=== PATIENT | male | born 1960 | race Caucasian/White ===

== ENCOUNTER 2023-08-12 08:47 | Outpatient (CLI) | payer OTHER, SELFPAY | END 2023-08-12 08:48 | disposition home or self-care (01) | LOC: AMB 08-13 16:08 | PROVIDERS: PCP Family Medicine; Visit Provider Emergency Medicine Emergency Medical Services | DX: R07.89 Other chest pain (principal) | CPT/HCPCS: A0425; A0427 ==

== ENCOUNTER 2023-08-12 09:25 | Emergency (ER) | payer OTHER, SELFPAY ==
[2023-08-12] VITALS (13 sets, daily range): BP systolic 104–150; BP diastolic 55–89; PULSE 74–87; RESP 18; TEMP 36.6; O2SAT 92–96; BMI 42.0
--- NOTE | 2023-08-12 10:14 | CT_ITS ---
Patient: GIL JOHN Facility:?[facility] Patient ID:?[id number] Site Patient ID:?[id number]. Site :?[id number] Study:?CT-Abdomen/Pelvis W/ISOVUE 370 132CC-08/12/2023 11:24:23 AM Ordering Physician:MELLO Final Report: Indication: LLQ & Epig pain Technique: CT abdomen/pelvis with IV contrast, 132 mL Isovue 370 Comparison: CT chest abdomen pelvis on December 15, 2015 Findings: The visualized lower thorax is unremarkable. Diffuse hepatic steatosis. Simple appearing cyst in the left hepatic lobe measuring approximately 1.2 centimeters. No suspicious focal hepatic lesions. The gallbladder, spleen, pancreas, and bilateral adrenal glands are unremarkable. The kidneys are fused in a normal fashion. No suspicious enhancing renal masses or lesions. Simple appearing renal cysts bilaterally. Unchanged perinephric stranding. No renal calculi or hydroureteronephrosis. The bladder is unremarkable. The seminal vesicles and prostate are unremarkable. No evidence of bowel obstruction or inflammation. Diverticulosis of the descending and proximal sigmoid colon without definitive CT evidence of acute diverticulitis. No free fluid or free air. No abdominopelvic lymphadenopathy. No abdominal aortic aneurysm. Mild calcified noncalcified atherosclerosis of the aortoiliac system. The soft tissues are unremarkable. The osseous structures are unremarkable for the patient`s age. Impression: 1. No definitive CT evidence of an acute process involving the abdomen or pelvis. 2. Diverticulosis of the descending and proximal sigmoid colon without definitive CT evidence of acute diverticulitis. Please note that all CT scans at this facility use dose modulation, iterative reconstruction, and/or weight-based dosing when appropriate to reduce radiation dose to as low as reasonably achievable. Dictated by Franko Ivory MD @ 08/12/2023 12:18:59 PM Signed by:?Franko Ivory MD @08/12/2023 12:18:59 PM (Electronic Signature)
--- NOTE | 2023-08-12 10:19 | ED_ITS ---
HPI - Chest Pain General Chief Complaint: Chest Pain Stated Complaint: Chest pain Time Seen by Provider: 08/12/23 10:03 History of Present Illness HPI narrative: This 63-year-old male comes in reporting abdominal pain for the past 2 or 3 days. This pain was located in his left lower quadrant and he states that is rather constant. This morning he awoke with some upper epigastric pain and some tingling in his shoulders. He states that he really did not have chest pain. He did not have any nausea, vomiting, lightheadedness, shortness of breath, or diaphoresis. He does not report any exercise intolerance. He does not report any blood in the stool or diarrhea. He has not had any fevers. Related Data Home Medications Medication Instructions Recorded Confirmed atorvastatin 20 mg tablet mg PO 08/12/23 carvedilol 12.5 mg tablet 25 mg PO BID 08/12/23 08/12/23 hydroxyzine pamoate 25 mg capsule mg PO 08/12/23 lisinopril 10 1 tab PO DAILY 08/12/23 08/12/23 mg-hydrochlorothiazide 12.5 mg tablet lorazepam 0.5 mg tablet mg PO 08/12/23 sertraline 25 mg tablet 25 mg PO DAILY 08/12/23 08/12/23 Previous Rx's Medication Instructions Recorded amoxicillin 875 mg-potassium 1 tab PO BID #14 tabs 08/12/23 clavulanate 125 mg tablet Allergies Allergy/AdvReac Type Severity Reaction Status Date / Time No Known Drug Allergies Allergy Verified 08/12/23 09:33 Review of Systems Status of ROS Reports: 10 or more systems reviewed and unremarkable except as noted in History and below Narrative Constitutional: No fevers, no weight gain or loss. Eyes: No discharge. No vision changes. HENT: No congestion, no sore throat, no ear pain. Cardiovascular: No chest pain, no palpitations. Respiratory: No shortness of breath, no wheezes, no cough. Gastrointestinal: No vomiting, no diarrhea. Abdominal pain as described above. Genitourinary: No dysuria, no hematuria. Musculoskeletal: Normal range of motion. Skin: No rashes, no pruritis. Neurological: No dizziness, weakness, sensory change, speech change. Endo/Heme/Allergies: No bruising or bleeding. No polydipsia. Pysch: no suicidality, no anxiety, no insomnia. All other systems reviewed and are negative. [facility] Social History Smoking Status: Never smoker How often do you have a drink containing alcohol: 2-4 times a month AUDIT-C Alcohol total score: 2 Non-prescribed substance use: denies use Exam Narrative Exam Narrative: Constitutional: Well-developed, well-nourished, no acute distress. HEENT: Normocephalic, atraumatic. Neck: Normal range of motion. Nontender. Supple. Heart: Regular. No murmurs. Normal rate. Intact distal pulses. Lungs: Clear to auscultation. No chest discomfort. No wheezes, rhonchi, or rales. Abdomen: Normal bowel sounds. Tenderness in the left lower quadrant. No rebound tenderness. Genitalia: Deferred. Back: No midline tenderness. Normal range of motion. Extremities: Normal range of motion. No injury. Skin: Intact. No rash. Warm. No erythema or pallor. Neurologic: No altered sensation. No weakness. Alert and oriented. Psychiatric: No suicidality. No anxiety or depression. No insomnia. Nursing notes and vitals signs are reviewed. Const Vital Signs, click to edit/add: Vital Signs - 24 hr 08/12/23 09:28 08/12/23 10:15 08/12/23 10:30 Temperature 97.9 F Pulse Rate 80 74 Pulse Rate [Pulse Oximeter] 75 Respiratory Rate 18 Blood Pressure Blood Pressure [Right Upper Arm] 150/87 H Pulse Oximetry 95 96 94 Oxygen Delivery Method Room Air 08/12/23 10:40 08/12/23 10:41 08/12/23 11:00 Temperature Pulse Rate 75 74 74 Pulse Rate [Pulse Oximeter] Respiratory Rate Blood Pressure 125/89 Blood Pressure [Right Upper Arm] Pulse Oximetry 93 95 93 Oxygen Delivery Method 08/12/23 11:01 08/12/23 11:35 08/12/23 12:00 Temperature Pulse Rate 76 79 78 Pulse Rate [Pulse Oximeter] Respiratory Rate Blood Pressure 117/79 Blood Pressure [Right Upper Arm] Pulse Oximetry 93 94 95 Oxygen Delivery Method 08/12/23 12:02 08/12/23 12:30 08/12/23 12:31 Temperature Pulse Rate 82 80 80 Pulse Rate [Pulse Oximeter] Respiratory Rate Blood Pressure 104/55 L 113/59 L Blood Pressure [Right Upper Arm] Pulse Oximetry 93 95 92 Oxygen Delivery Method Course Vital Signs Vital signs: Initial Vital Signs Temperature 97.9 F 08/12/23 09:28 Temperature Source Temporal Artery Scan 08/12/23 09:28 Pulse Rate 75 08/12/23 09:28 Respiratory Rate 18 08/12/23 09:28 Respiratory Effort Normal 08/12/23 09:28 Respiratory Depth Normal 08/12/23 09:28 Respiratory Pattern Normal 08/12/23 09:28 Blood Pressure 150/87 H 08/12/23 09:28 Blood Pressure Mean 108 H 08/12/23 09:28 Blood Pressure Position Supine 08/12/23 09:28 Pulse Oximetry 95 08/12/23 09:28 Oxygen Delivery Method Room Air 08/12/23 09:28 Vital Signs Temperature 97.9 F 08/12/23 09:28 Pulse Rate 75 08/12/23 09:28 Respiratory Rate 18 08/12/23 09:28 Blood Pressure 150/87 H 08/12/23 09:28 Pulse Oximetry 95 08/12/23 09:28 Oxygen Delivery Method Room Air 08/12/23 09:28 Temperature 97.9 F 08/12/23 09:28 Pulse Rate 80 08/12/23 12:31 Respiratory Rate 18 08/12/23 09:28 Blood Pressure 113/59 L 08/12/23 12:31 Pulse Oximetry 92 08/12/23 12:31 Oxygen Delivery Method Room Air 08/12/23 09:28 MDM - Chest Pain MDM Narrative Medical decision making narrative: This 63-year-old male comes in with left lower quadrant abdominal pain over the past 2 or 3 days. He has not had diverticulitis in the past and does not complain of any fever or blood in the toilet. His pain in his abdomen is rather constant. CT scan of the abdomen and pelvis does show evidence of diverticulosis but not obvious diverticulitis. The patient does have a slightly elevated white count and his symptoms are suspicious for diverticulitis. I did decide to treat with Augmentin. His EKG and troponin levels return in normal range. The patient is okay to be discharged home. I advised him to follow up if symptoms are worsening. Lab Data Labs: Lab Results 08/12/23 Range/Units 10:27 WBC 11.52 H (4.50-11.00) K/uL RBC 5.20 (4.30-5.90) m/uL Hgb 15.2 (13.5-17.5) gm/dL Hct 44.4 (37.0-53.0) % MCV 85 (80-100) fL MCH 29 (26-34) pg MCHC 34 (32-36) gm/dL RDW Coeff of Shaina 13.0 (11.5-15.5) % Plt Count 255 (140-440) K/uL Neut % (Auto) 82.0 H (42.0-72.0) % Lymph % (Auto) 9.7 L (20-44) % Clare % (Auto) 6.4 (0.0-11.0) % Eos % (Auto) 1.5 (0.0-7.0) % Baso % (Auto) 0.2 (0.0-3.0) % Neut # (Auto) 9.40 H (1.7-7.0) K/uL Lymph # (Auto) 1.10 (0.90-2.90) K/uL Clare # (Auto) 0.70 (0.00-0.90) K/UL Eos # (Auto) 0.20 (0.00-0.50) K/uL Baso # (Auto) 0.00 (0.00-0.30) K/uL Abs Immat Gran (auto) 0.00 (0.00-0.30) K/uL Imm/Tot Granulo (auto) 0.2 % Sodium 135 (135-149) mmol/L Potassium 5.3 H (3.6-5.1) mmol/L Chloride 104 (96-114) mmol/L Carbon Dioxide 22 (20-32) mmol/L Anion Gap 9 (7-15) mEq/L BUN 26 (7-30) mg/dL Creatinine 1.2 (0.5-1.5) mg/dL Estimated Creat Clear 57.38 Estimated GFR 67 ml/min Glucose 174 H (60-115) mg/dL Calcium 9.4 (8.4-10.6) mg/dL Lipase 67 (23-300) U/L POC Troponin I 0.00 L (0.01-0.04) ng/ml ECG Data Attestation: I personally reviewed and interpreted this ECG as follows: Interpretation: Normal sinus rhythm. Rate is 79 beats per minute. There are no ST or T-wave abnormalities. Discharge Plan Discharge Clinical Impression: Abdominal pain Patient Disposition: Home, Self-Care Condition: Stable Additional Instructions: Take medication as prescribed. Follow up with MD or return if symptoms are persistent or worsening. Prescriptions: New amoxicillin-pot clavulanate 875-125 mg tablet 1 tab PO BID Qty: 14 0RF No Action atorvastatin 20 mg tablet PO carvedilol 12.5 mg tablet 25 mg PO BID lorazepam 0.5 mg tablet PO sertraline 25 mg tablet 25 mg PO DAILY lisinopril-hydrochlorothiazide 10-12.5 mg tablet 1 tab PO DAILY hydroxyzine pamoate 25 mg capsule PO Follow Up/Referrals: Javon Garces MD [Primary Care Provider] - Stand Alone Forms: [employer] Info Instructions
[2023-08-12 10:34] LABS: Basophils Percent Auto 0.2 % (0.0-3.0); Eosinophils Percent Auto 1.5 % (0.0-7.0); Hematocrit 44.4 % (37.0-53.0); Hemoglobin* 15.2 gm/dL (13.5-17.5); Immature Granulocytes Pct Auto 0.2 %; Lymphocytes Percent Auto 9.7 % (20-44); Mean Corpuscular HGB Conc 34 gm/dL (32-36); Mean Corpuscular Hemoglobin 29 pg (26-34); Mean Corpuscular Volume 85 fL (80-100); Monocytes Percent Auto 6.4 % (0.0-11.0); Platelet Count* 255 K/uL (140-440); White Blood Count* 11.52 K/uL (4.50-11.00)
[2023-08-12 10:44] LABS: Slide Review Reflex No
[2023-08-12 10:46] LABS: Chloride* 104 mmol/L (96-114); Sodium* 135 mmol/L (135-149)
[2023-08-12 10:47] LABS: Potassium* 5.3 mmol/L (3.6-5.1)
[2023-08-12 10:49] LABS: Anion Gap 9 mEq/L (7-15); Blood Urea Nitrogen* 26 mg/dL (7-30); Carbon Dioxide* 22 mmol/L (20-32); Creatinine* 1.2 mg/dL (0.5-1.5); Est. Creatinine Clearance* 57.38; Estimated Glomerular Filt Rate 67 ml/min; Glucose* 174 mg/dL (60-115); Lipase* 67 U/L (23-300)
[2023-08-12 10:50] LABS: Calcium* 9.4 mg/dL (8.4-10.6)
== END 2023-08-12 13:58 | disposition home or self-care (01) ==
PROVIDERS: Emergency Provider Emergency Medicine Emergency Medical Services; PCP Family Medicine
DX: R10.9 Unspecified abdominal pain (principal)
CPT/HCPCS: 36415; 74177; 80048; 83690; 84484; 85025; 93005; 99284; 99285; Q9967